=== PATIENT | male | born 1940 | race Caucasian/White ===

== ENCOUNTER 2017-03-22 06:34 | Inpatient (IN) | payer OTHER, MEDICAID ==
[~2017-03-22] VITALS: Ht 165.1 cm; Wt 48.6 kg
[2017-03-22] MEDS ORDERED: SOD CHLORIDE 0.9% 1,000 ML IV STA ×2 (06:37)
[2017-03-22] MEDS ORDERED: CEFEPIME 2GM/50 ML (PMX) 50 ML IVPB STA (06:37)
[2017-03-22] MEDS ORDERED: VANCOMYCIN 1 GM (PMX) 250 ML IVPB ONE (07:00)
[2017-03-22 07:09] LABS: ABNORMAL IP MESSAGE 1; BASOPHIL # 0.1 10^3/ul (0.0-0.1); BASOPHILS % 0.4 % (0.0-2.0); EOSINOPHILS % 0.1 % (0.0-7.0); HEMATOCRIT 32.2 % (42.0-52.0); HEMOGLOBIN 10.2 g/dl (14.0-18.0); LYMPHOCYTES # 0.4 10^3/ul (0.8-2.9); LYMPHOCYTES % 3.2 % (15.0-51.0); MEAN CORPUSCULAR HGB CONC 31.7 g/dl (32.0-37.0); MEAN CORPUSCULAR VOLUME 94.7 fl (82.0-101.0); MEAN PLATELET VOLUME 9.3 fl (7.4-10.4); MONOCYTE # 0.4 10^3/ul (0.3-0.9); NEUTROPHIL # 12.5 10^3/ul (1.6-7.5); NEUTROPHILS % 92.3 % (39.0-77.0); PLATELET COUNT 204 10^3/UL (140-415); POSITIVE DIFF @See below; RED CELL DISTRIBUTION WIDTH 14.6 % (11.5-14.5); WHITE BLOOD COUNT 13.5 10^3/ul (4.8-10.8)
[2017-03-22 07:15] LABS: ADD UMIC YES; UR ASCORBIC ACID NEGATIVE (NEGATIVE); UR BILIRUBIN (Dip) NEGATIVE (NEGATIVE); UR BLOOD (Dip) NEGATIVE (NEGATIVE); UR CLARITY SLIGHTLY CLOUDY (CLEAR); UR COLOR YELLOW (YELLOW); UR GLUCOSE (Dip) 2+ mg/dL (NEGATIVE); UR KETONES (Dip) NEGATIVE (NEGATIVE); UR LEUKOCYTE ESTERASE (Dip) NEGATIVE Leu/ul (NEGATIVE); UR NITRITE (Dip) NEGATIVE (NEGATIVE); UR RBC 5 /HPF (0-5); UR TOTAL PROTEIN (Dip) 1+ mg/dl (NEGATIVE); UR UROBILINOGEN (Dip) NEGATIVE (NEGATIVE)
[2017-03-22 07:25] LABS: PROTIME 13.2 Sec (12.2-14.2)
[2017-03-22 07:26] LABS: PARTIAL THROMBOPLASTIN TIME 41.5 Sec (25.0-35.0)
[2017-03-22 07:32] LABS: ALBUMIN 3.1 g/dl (3.3-4.9); ALBUMIN/GLOBULIN RATIO 0.79; BILIRUBIN,INDIRECT 0.2 mg/dl (0-1.1); BILIRUBIN,TOTAL 0.2 mg/dl (0.2-1.3); CREATININE 0.5 mg/dl (0.61-1.24); POTASSIUM 4.2 mmol/L (3.5-5.1)
[2017-03-22 07:43] LABS: TROPONIN-I 0.029 ng/ml (0.00-0.12)
[2017-03-22] MEDS ORDERED: SODIUM CHLORIDE 0.9% 1L BAG IV* STA (07:51)
[2017-03-22] MEDS ORDERED: ACETAMINOPHEN 325 MG TAB PO PRN (08:00)
[2017-03-22] MEDS ORDERED: ONDANSETRON 4 MG INJ IV PRN ×2 (08:00→14:30)
[2017-03-22] MEDS ORDERED: SOD CHLORIDE 0.9% IV ONE (08:00)
--- NOTE | 2017-03-22 08:40 | RADRPT ---
PROCEDURE: XR Chest. CLINICAL INDICATION: Sepsis TECHNIQUE: An AP view of the chest was obtained. COMPARISON: No prior exam is available for comparison. FINDINGS: There is a right upper extremity PICC line with tip near the cavoatrial junction. There is prominence of the interstitial markings. There are bibasilar interstitial opacities. No pl eural effusion or pneumothorax is seen. The cardiomediastinal silhouette is mildly enlarged . Calc ifications are seen within the aortic arch. The osseous structures demonstrate senescent changes. IMPRESSION: 1. Bibasilar interstitial opacities may reflect atelectasis, interstitial edema, scarring, and / or pneumonia. 2. Chronic-appearing interstitial changes. 3. Mild cardiomegaly and aortic atherosclerosis. 4. Right upper extremity PICC line with tip near the cavoatrial junction. RPTAT: HH .Rosa Maria Altamirano MD, Date Time Electronically viewed and signed by .Rosa Maria Altamirano MD, on 03/22/2017 07:14 .G/
--- NOTE | 2017-03-22 09:07 | ERD ---
ER Documentation Chief Complaint Chief Complaint SOB FROM SNF, FATIGUE HPI Patient is a 76-year-old male with with "no medical problems" who presents with shortness of breath. The patient was brought in by ambulance. He came from a nursing facility. He has low oxygen and shortness of breath. He said that he lost 55 pounds since last year. He denies cancer. He has had a cough. He has no fevers. He is on Zosyn per the long-term information but does not know why. He is a full code. Upon review of old medical records this is the patient 's first visit to the ER. ROS All systems reviewed and are negative except as per history of present illness. Medications Home Meds No Active Prescriptions or Reported Meds Allergies Allergies: Coded Allergies: No Known Allergy (Unverified , 03/22/17) NKA PER CONTRACT CONSULTANT LOYD PMhx/Soc History of Surgery: No (PT DENIES) Anesthesia Reaction: No Hx Neurological Disorder: No Hx Respiratory Disorders: No Hx Cardiac Disorders: No Hx Psychiatric Problems: No Hx Miscellaneous Medical Probl: Yes (METABOLIC DISORDER, DUODENAL OBSTRUCTION, RENAL INSUFFICIENCY, DEHYDRATION) Hx Alcohol Use: No Hx Substance Use: No Hx Tobacco Use: No Smoking Status: Never smoker FmHx Family History: diabetes Physical Exam Vitals Vital Signs Date Time Temp Pulse Resp B/P Pulse Ox O2 Delivery O2 Flow Rate FiO2 03/22/17 08:19 97.5 73 16 136/62 100 Nasal Cannula 3.0 03/22/17 06:39 96.8 89 33 109/54 94 Room Air 03/22/17 06:39 Nasal Cannula 3.0 03/22/17 06:39 Nasal Cannula 3 03/22/17 06:39 96.8 89 33 109/54 94 Physical Exam Const: Moderate distress and severe cachexia Head: Atraumatic Eyes: Normal Conjunctiva ENT: Normal External Ears, Nose and Mouth. Neck: Full range of motion..~ No meningismus. Resp: Tachypnea with rhonchorous breath sounds diffusely Cardio: Regular rate and rhythm, no murmurs Abd: Soft, non tender, non distended. Normal bowel sounds Skin: No petechiae or rashes Back: No midline or flank tenderness Ext: No cyanosis, or edema Neur: Awake confused Result Diagram: 03/22/1764403/22/17644 Results 24 hrs Laboratory Tests Test 03/22/17 06:45 03/22/17 06:48 White Blood Count 13.510^3/ul Red Blood Count 3.4010^6/ul Hemoglobin 10.2g/dl Hematocrit 32.2% Mean Corpuscular Volume 94.7fl Mean Corpuscular Hemoglobin 30.0pg Mean Corpuscular Hemoglobin Concent 31.7g/dl Red Cell Distribution Width 14.6% Platelet Count 86119^3/UL Mean Platelet Volume 9.3fl Neutrophils % 92.3% Lymphocytes % 3.2% Monocytes % 3.0% Eosinophils % 0.1% Basophils % 0.4% Nucleated Red Blood Cells % 0.0/100WBC Neutrophils # 12.510^3/ul Lymphocytes # 0.410^3/ul Monocytes # 0.410^3/ul Eosinophils # 0.010^3/ul Basophils # 0.110^3/ul Nucleated Red Blood Cells # 0.010^3/ul Prothrombin Time 13.2Sec Prothrombin Time Ratio 1.0 INR International Normalized Ratio 1.00 Activated Partial Thromboplast Time 41.5Sec Sodium Level 141mmol/L Potassium Level 4.2mmol/L Chloride Level 98mmol/L Carbon Dioxide Level 35mmol/L Anion Gap 12 Blood Urea Nitrogen 23mg/dl Creatinine 0.50mg/dl Glucose Level 131mg/dl Calcium Level 8.0mg/dl Total Bilirubin 0.2mg/dl Direct Bilirubin 0.00mg/dl Indirect Bilirubin 0.2mg/dl Aspartate Amino Transf (AST/SGOT) 41IU/L Alanine Aminotransferase (ALT/SGPT) 48IU/L Alkaline Phosphatase 218IU/L Troponin I 0.029ng/ml Total Protein 7.0g/dl Albumin 3.1g/dl Globulin 3.90g/dl Albumin/Globulin Ratio 0.79 Urine Color YELLOW Urine Clarity SLIGHTLY CLOUDY Urine pH 5.0 Urine Specific [place] 1.020 Urine Ketones NEGATIVEmg/dL Urine Nitrite NEGATIVEmg/dL Urine Bilirubin NEGATIVEmg/dL Urine Urobilinogen NEGATIVEmg/dL Urine Leukocyte Esterase NEGATIVELeu/ul Urine Microscopic RBC 5/HPF Urine Microscopic WBC 5/HPF Urine Granular Casts FEW/HPF Urine Hemoglobin NEGATIVEmg/dL Urine Glucose 2+mg/dL Urine Total Protein 1+mg/dl Lactic Acid Level 1.2mmol/L Current Medications Medications (Trade) Dose Ordered Sig/Agustin Route PRN Reason Start Time Stop Time Status Last Admin Dose Admin Cefepime HCl 50 ml @ 100 mls/hr ONCE STAT IVPB 03/22/17 06:37 03/22/17 07:06 DC 03/22/17 07:50 Vancomycin HCl 250 ml @ 125 mls/hr ONCE ONCE IVPB 03/22/17 07:00 03/22/17 08:59 DC 03/22/17 07:00 Sodium Chloride 1,000 ml @ 1,000 mls/hr Q1H STAT IV 03/22/17 06:37 03/22/17 07:53 DC 03/22/17 07:35 Sodium Chloride (NS) 1,000 ml @ 1,000 mls/hr Q1H STAT IV 03/22/17 06:37 03/22/17 07:36 DC Ondansetron HCl (Zofran Inj) 4 mg BRIDGE ORDER PRN IV NAUSEA AND/OR VOMITING 03/22/17 08:00 03/23/17 07:59 Acetaminophen (Tylenol Tab) 650 mg ER BRIDGE PRN PO MILD PAIN/FEVER 03/22/17 08:00 03/23/17 07:59 Sodium Chloride 1510 ml 1,510 ml BOLUS OVER 2 HOURS STAT IV* 03/22/17 07:51 03/22/17 07:53 DC Sodium Chloride (NS) 510 ml @ 500 mls/hr Q1H2M ONCE IV 03/22/17 08:00 03/22/17 09:01 DC 03/22/17 08:09 Procedures/MDM EKG read by me: Rate/Rhythm: Regular rate and rhythm at a rate of 89 Intervals: Normal Impression: No evidence of ischemia or arrhythmia X-ray shows pulmonary infiltrates per radiology. Admit MDM: Patient's infectious symptoms have not stabilized and the patient is at risk of rapid decompensation. The patient will be admitted for careful hydration, antibiotic therapy, and infectious source control. Severe Sepsis criteria: Infectious source: Pneumonia End organ damage indicated by: No end organ damage at this time Sepsis Management: Time of recognition of sepsis: Upon arrival Within 3 hours of recognition: Blood cultures x 2 before broad-spectrum antibiotics: Yes 30 ml/kg NS bolus Completed Initial lactate 1.2 Repeat lactate pending Time of recognition of septic shock: No septic shock Septic Shock Assessment: Any lactic acid > 4.0 No Persistent hypotension (SBP < 90 or 40 mmHg drop, MAP < 65) despite 30 mL/kg IV fluid bolus No Volume Re-assessment for Septic Shock (post 30 ml/kg bolus): No septic shock at this time Persistent Hypotension Treatment: Comfort care No Central line Not Required Vasopressor started Not required I considered further perfusion assessment with CVP measurement, SCVO2, bedside ultrasound volume assessment, passive leg raise, trial of further fluid bolus. And proceeded with 30 ml/kg fluid bolus of NSS, broad spectrum antibiotics, and admission. Accepting Care Team Current data and ongoing care discussed. Admitting Physician: Dr. Puente from the panel team Electronic Device Repairer(s): None Outstanding Data: Results and repeat lactic acid Critical Care: Critical care time 35 minutes excluding all billable procedures Emergent fluid management while maintaining close respiratory support. Provision of immediate and broad-spectrum antibiotic therapy. Simultaneous assessment for possible sources in order to direct targeted therapy. Consideration for invasive and chemical support to prevent cardiopulmonary collapse. Departure Diagnosis: Primary Impression: Shortness of breath Additional Impressions: Pneumonia Pneumonia type: due to unspecified organism Laterality: unspecified laterality Lung location: unspecified part of lung Qualified Code: J18.9 - Pneumonia due to infectious organism, unspecified laterality, unspecified part of lung Sepsis Sepsis type: sepsis due to unspecified organism Qualified Code: A41.9 - Sepsis, due to unspecified organism JOSÉ MIGUEL CHRISTENSEN MD Mar 22, 2017 09:07
[2017-03-22] MEDS ORDERED: HEP30MU30 IJ (11:20)
[2017-03-22] MEDS ORDERED: INSU100V3 IJ (11:21)
[2017-03-22] MEDS ORDERED: LEVA0.6312 HHN (11:22)
[2017-03-22 12:39] VITALS: PULSE 85; TEMP 98.2
[2017-03-22 14:25] VITALS: BP 102/66; RESP 18
[2017-03-22] MEDS ORDERED: ACETAMINOPHEN 650 MG SUPP PR PRN (14:30)
[2017-03-22] MEDS ORDERED: NACL 0.9% 3 ML SYG IV SCH (14:30)
[2017-03-22] MEDS ORDERED: VANCOMYCIN IV PER PHARMACY XX SCH (14:30)
--- NOTE | 2017-03-22 14:41 | HP ---
Date/Time of Note Date/Time of Note DATE: 03/22/17 TIME: 14:15 Assessment/Plan VTE Prophylaxis VTE Prophylaxis Intervention: SCD's Lines/Catheters Urinary Cath still in place: No Assessment/Plan Chief Complaint/Hosp Course 76 [facility] with hx of duodenal obstruction, who is on TPN brought to ER for SOB. 1. SIRS with Possible pneumonia. Chest Xray with Bibasilar interstitial opacities may reflect atelectasis, interstitial edema, scarring, and / or pneumonia. Chronic-appearing interstitial changes. -Admit as inpatient , Start bronchodilators, empiric IV abx . -CT chest for follow-up ., f/U Xray, blood, urine and resp CS. 2.Dehydration. -Start IVFs 3.Dysphagia with possible hx of duodenal obstruction -Patient was receiving TPN at [facility] -CT abd/Pelvis,GI consult, speech eval and determine whether patient can be benefited from Jejunostomy placement (endoscopic Vs surgical). 4.Severe protein-Calorie malnutrition -Treatment per #3.Obtain prealbumin, ST/dietary consult. -Obtain HIV antibodies, tumor markers. 5.Metabolic disorders. -monitor lytes 6. Debility -PT/OT/ST eval and treat -Supportive care 7. Anemia, mild,likley chronic. -obtain iron panel. 8. Chronic pancreatitis. -Lipase at baseline. Prophylaxis: SCds/Pepcid. torpedo worker to further nail into available family/community support system available for this gentleman . Rest of the management per hospital course Approximately 60mins spent on this H&P Patient was seen in collaboration with . Problems: HPI/ROS Admit Date/Time Admit Date/Time Hx of Present Illness This is a very unfortunate 76-year-old severely cachectic and debilitated male who is also a poor historian, who was brought from [facility] with shortness of breath and non productive cough. Patient does not seem like he has any insight into his medical problems. However, he reported to me than he lost 55 pounds since last year.Patient denied fevers, chills, PND, night sweats,orthopnea, chest pain, palpitation, headache, loss of consciousness or other difficulties. Up on review of charts, it seems like patient was recently discharged from [facility] where he was treated for metabolic disorders, duodenal obstruction, dehydration. pancreatitis, and protein-calorie malnutrition. He was on TPN therapy at SNF for which he also has a PICC line on his right arm. He is also [facility] Zosyn [facility] charts. Initial labs with negative UA for UTI, Elevated WBC 13,500, HH 10.2/32.2, BUN/ Creat 23/0.5, Alkaline phos 218. Otherwise, unremarkable. Chest Xray showed chronic interstitial changes with Bibasilar interstitial opacities may reflect atelectasis, interstitial edema, scarring, and / or pneumonia. Patient was treated with IVFs, Cefepime +VANCO in ER and admitted. ROS A 12-Point review of system negative except other than what is mentioned in HPI. PMH/Family/Social Past Medical History see HPI Past Surgical History see HPI Social History Denied hx of smoking, alcohol or illicit drug use. Smoking Status: Never smoker Exam/Review of Systems Vital Signs Vitals Vital Signs Date Time Temp Pulse Resp B/P Pulse Ox O2 Delivery O2 Flow Rate FiO2 03/22/17 12:39 98.2 85 22 115/62 100 Nasal Cannula 3.0 Exam Exam General: Severely cachectic male ,not in acute distress. . HEENT: Normocephalic, Atraumatic, No laceration or hematoma; Eyes: PEERL, Conjunctiva clear, Anicteric sclera Neck: Supple without any lymphadenopathy, nontender, no JVD, no carotid bruits, trachea midline, no thyromegaly Cardiac: S1, S2 auscultated, regular rhythm and rate, no mumurs or gallop Pulmonary: Diffuse Rhonchi all lung hobson. Normal respiratory effort.No wheezing. GI: Scaphoid abdomen. Soft, non- distended, no masses, no rebound tenderness or guarding. Bowel sounds active on all four quadrants Genitourinary: Deferred Extremities: With muscle wasting. Generalized weakness. Pulses [2+] bilaterally. Neurologic: Awake/Confused. Incomprehensible speech. Skin: +Poor turgor. Clean,dry, and intact. No ecchymosis, no rashes, or lesions Labs Result Diagram: 03/22/17 0645 03/22/17 0645 NICOLETTE MUHAMMAD NP Mar 22, 2017 14:26
[2017-03-22] MEDS ORDERED: ALBUTEROL/IPRATROPIUM (NEB) 3 ML AMP HHN PRN (15:00)
[2017-03-22 15:24] LABS: TOTAL IRON BINDING CAPACITY 157 ug/dl (241-421)
[2017-03-22 15:41] LABS: IRON 23 ug/dl (35-150)
[2017-03-22] MEDS: ALBUTEROL/IPRATROPIUM (NEB) 3 ML AMP HHN SCH ×2 (16:35→19:59)
--- NOTE | 2017-03-22 17:15 | CONS ---
Date/Time of Note Date/Time of Note DATE: 03/22/17 TIME: 16:51 Assessment/Plan Assessment/Plan Chief Complaint/Hosp Course Assessment: Anemia/ likely secondary to chronic disease Cachectic Dysphagia Possible duodenal obstruction Possible pneumonia. Malnutrition Chronic pancreatitis. Plan: Currently patient refusing to discuss possible PEG placement, this time does not want PEG CT abd/pelvis with IV contrast- to r/o duodenal obstruction- If positive for obstruction and patient agree, will need surgical placement fo J -tube Chief Complaint/Reason for Visit: Dysphagia History of Present Illness: This is a 76 year old male, admitted to the hospital from SNF for SOB, pt with multiple comorbidities, history obtained from medical records, as patient is very agitated and does not want "to answer any more questions". Patient received TPN at SNF, however with malnutrition and dysphagia GI has been asked to consult for possible peg placement. There is some concern for duodenal obstruction. CT abd/pelvis with IV contrast has been ordered to r/o obstruction , however, patient has been refusing most services today, including possibility of PEG placement if CT was negative, We will continue to monitor patient, but hold off on any plans at this time. Past Medical History: Chronic pancreatitis. anemia Allergies: No known allergy Family History: Unable to assess Social History: No smoking-medical records Problems: Consultation Date/Type/Reason Admit Date/Time Date of Consultation: Mar 22, 2017 Type of Consultation: GI Reason for Consultation Dysphagia Possible duodenal obstruction Subjective hx not possible: other (She is agitated, using gas questions, wants to be left alone) Social History Smoking Status: Never smoker Exam/Review of Systems Vital Signs Vitals Vital Signs Date Time Temp Pulse Resp B/P Pulse Ox O2 Delivery O2 Flow Rate FiO2 03/22/17 14:25 97.8 73 18 102/66 99 03/22/17 12:39 Nasal Cannula 3.0 Exam Constitutional: frail, other (Cachectic) Psych: other (Agitated) Head: atraumatic, normocephalic ENMT: other (Dry mucous membranes) Respiratory: other (Unable to assess) Cardiovascular: other (Unable to assess) Gastrointestinal: other (Able to assess) Genitourinary - Male: other (Unable to assess) Musculoskeletal: other (Appears extremely weak) Results Result Diagram: 03/22/17 0645 03/22/17 0645 Results 24 hrs Laboratory Tests Test 03/22/17 06:45 03/22/17 06:48 03/22/17 10:13 03/22/17 12:30 White Blood Count 13.5 H Red Blood Count 3.40 L Hemoglobin 10.2 L Hematocrit 32.2 L Mean Corpuscular Volume 94.7 Mean Corpuscular Hemoglobin 30.0 Mean Corpuscular Hemoglobin Concent 31.7 L Red Cell Distribution Width 14.6 H Platelet Count 204 Mean Platelet Volume 9.3 Neutrophils % 92.3 H Lymphocytes % 3.2 L Monocytes % 3.0 Eosinophils % 0.1 Basophils % 0.4 Nucleated Red Blood Cells % 0.0 Neutrophils # 12.5 H Lymphocytes # 0.4 L Monocytes # 0.4 Eosinophils # 0.0 Basophils # 0.1 Nucleated Red Blood Cells # 0.0 Prothrombin Time 13.2 Prothrombin Time Ratio 1.0 INR International Normalized Ratio 1.00 Activated Partial Thromboplast Time 41.5 H Sodium Level 141 Potassium Level 4.2 Chloride Level 98 Carbon Dioxide Level 35 H Anion Gap 12 Blood Urea Nitrogen 23 H Creatinine 0.50 L Glucose Level 131 Calcium Level 8.0 L Total Bilirubin 0.2 Direct Bilirubin 0.00 Indirect Bilirubin 0.2 Aspartate Amino Transf (AST/SGOT) 41 Alanine Aminotransferase (ALT/SGPT) 48 Alkaline Phosphatase 218 H Troponin I 0.029 Total Protein 7.0 Albumin 3.1 L Globulin 3.90 H Albumin/Globulin Ratio 0.79 Lipase 309 H Urine Color YELLOW Urine Clarity SLIGHTLY CLOUDY A Urine pH 5.0 Urine Specific [place] 1.020 Urine Ketones NEGATIVE Urine Nitrite NEGATIVE Urine Bilirubin NEGATIVE Urine Urobilinogen NEGATIVE Urine Leukocyte Esterase NEGATIVE Urine Microscopic RBC 5 Urine Microscopic WBC 5 Urine Granular Casts FEW A Urine Hemoglobin NEGATIVE Urine Glucose 2+ H Urine Total Protein 1+ H Lactic Acid Level 1.2 1.0 0.8 Iron Level 23 L Total Iron Binding Capacity 157 L Percent Iron Saturation 15 L Medications Medications Current Medications Sodium Chloride (NS) 1,000 ml @ 125 mls/hr Q8H IV ; Start 03/22/17 at 18:00 Ondansetron HCl (Zofran Inj) 4 mg Q6H PRN IV NAUSEA AND/OR VOMITING; Start at 14:30 Acetaminophen (Tylenol Supp) 650 mg Q6H PRN [place] PAIN LEVEL 1-3 OR FEVER; Start 03/22/17 at 14:30 Famotidine 20 mg 20 mg QHS IV ; Start 03/22/17 at 21:00 Cefepime HCl 50 ml @ 100 mls/hr Q24H IVPB ; Start 03/23/17 at 08:00 Vancomycin HCl/ Dextrose/Water (Vancocin/D5W) 150 ml @ 75 mls/hr Q24H IVPB ; Start 03/23/17 at 06:00 NAYAN LOWERY Mar 22, 2017 17:04
[2017-03-22] MEDS: SOD CHLORIDE 0.9% 1,000 ML IV SCH (18:03)
[2017-03-22 18:57] LABS: CARCINOEMBRYONIC ANTIGEN 2.2 ng/ml (0.0-5.0)
[2017-03-22 19:42] VITALS: BP 114/61; RESP 20
[2017-03-22 20:00] VITALS: Ht 165.1 cm; Wt 48.6 kg
[2017-03-22] MEDS ORDERED: FAMOTIDINE 20 MG INJ IV SCH (21:00)
[2017-03-22] MEDS ORDERED: CEFEPIME 1GM/50 ML (PMX) 50 ML IVPB SCH (21:00)
[2017-03-23] MEDS: ALBUTEROL/IPRATROPIUM (NEB) 3 ML AMP HHN SCH ×5 (00:57→16:23)
[2017-03-23 02:09] VITALS: BP 127/60; RESP 20
[2017-03-23] MEDS: SOD CHLORIDE 0.9% 1,000 ML IV SCH ×3 (03:16→15:25)
[2017-03-23] MEDS ORDERED: VANCOMYCIN 750 MG in DEXTROSE 5% 150 ML IVPB SCH (06:00)
[2017-03-23 06:27] LABS: ABNORMAL IP MESSAGE 1; BASOPHILS % 0.2 % (0.0-2.0); EOSINOPHILS % 0.4 % (0.0-7.0); HEMATOCRIT 28.2 % (42.0-52.0); HEMOGLOBIN 8.8 g/dl (14.0-18.0); LYMPHOCYTES # 0.5 10^3/ul (0.8-2.9); LYMPHOCYTES % 4.7 % (15.0-51.0); MEAN CORPUSCULAR HEMOGLOBIN 29.7 pg (29.0-33.0); MEAN CORPUSCULAR HGB CONC 31.2 g/dl (32.0-37.0); MEAN CORPUSCULAR VOLUME 95.3 fl (82.0-101.0); MEAN PLATELET VOLUME 9.8 fl (7.4-10.4); MONOCYTE # 0.6 10^3/ul (0.3-0.9); MONOCYTES % 5.1 % (0.0-11.0); NEUTROPHIL # 9.7 10^3/ul (1.6-7.5); NEUTROPHILS % 88.8 % (39.0-77.0); PLATELET COUNT 202 10^3/UL (140-415); POSITIVE DIFF @See below; RED BLOOD COUNT 2.96 10^6/ul (4.70-6.10); RED CELL DISTRIBUTION WIDTH 14.6 % (11.5-14.5); WHITE BLOOD COUNT 10.9 10^3/ul (4.8-10.8)
[2017-03-23 06:38] LABS: ALBUMIN 2.5 g/dl (3.3-4.9); ALBUMIN/GLOBULIN RATIO 0.69; BILIRUBIN,INDIRECT 0.2 mg/dl (0-1.1); BILIRUBIN,TOTAL 0.2 mg/dl (0.2-1.3); CALCIUM 8.1 mg/dl (8.4-10.2); CHOL/HDL RATIO 5.7 RATIO; CREATININE 0.52 mg/dl (0.61-1.24); MAGNESIUM 1.7 mg/dl (1.7-2.5); PHOSPHORUS 2.8 mg/dl (2.5-4.9); POTASSIUM 3.7 mmol/L (3.5-5.1); TOTAL PROTEIN 6.1 g/dl (6.1-8.1)
[2017-03-23] MEDS ORDERED: PENDING SANTYL ORDER FOR WOUND CARE XX PRN (07:00)
[2017-03-23 07:02] LABS: THYROID STIMULATING HORMONE 1.75 MIU/L (0.465-4.680)
[2017-03-23 08:00] VITALS: BP 117/64; RESP 66
[2017-03-23] MEDS ORDERED: CEFEPIME 1GM/50 ML (PMX) 50 ML IVPB SCH (08:00)
--- NOTE | 2017-03-23 12:18 | PDOCDIS ---
Discharge Instructions CONDITION Patient Condition: Stable HOME CARE INSTRUCTIONS: Special Diet: NPO FOLLOW UP/APPOINTMENTS Follow-up Plan 1.Follow up with primary care physician in 1 week If you don't have one please let someone know, we can give you resources that may help you pick one. You may also call your insurance company to assign one to you. Review your medication list with your nurse before leaving and if you need new prescriptions please let your nurse know. I may have made changes to your home medications or given you new prescriptions, please let your primary doctor know as well. Stay compliant with your medications and report any side effects to your PCP or pharmacist. Return to the ER if you have any concerns and cannot reach your doctors or call your insurance company, they usually have a nurse that can help you. 2. Call 911 or go to the nearest emergency room if experiencing loss of consciousness, dizziness, chest pain, shortness of breath, vomiting/abdominal pain, speech difficulties, motor weakness or any unusual symptoms. NICOLETTE MUHAMMAD NP Mar 23, 2017 12:18
[2017-03-23] MEDS ORDERED: [UNRECOGNIZED DRUG - OTHER] IV (12:19)
[2017-03-23] MEDS ORDERED: DEXTROSE 50% 50 ML SYRINGE IV ONE (12:30)
[2017-03-23] MEDS ORDERED: *CONTINUE SAME TPN IV ONE (12:30)
[2017-03-23] MEDS ORDERED: DEXTROSE 10% 1,000 ML IV SCH (12:30)
--- NOTE | 2017-03-23 13:07 | PN ---
Date/Time of Note Date/Time of Note DATE: 03/23/17 TIME: 13:05 Assessment/Plan VTE Prophylaxis VTE Prophylaxis Intervention: SCD's Lines/Catheters IV [facility] (from [facility] P[facility] Line Central line still needed: Yes (TPN) Urinary Cath still in place: Yes Reason Cath still needed: other (indicate) (Monitor output) Assessment/Plan Chief Complaint/Hosp Course Assessment: Anemia/ likely secondary to chronic disease Cachectic Dysphagia Possible duodenal obstruction Possible pneumonia. Malnutrition Chronic pancreatitis. Plan: Pt refusing all treatment- plan to be transferred back to [facility] today Subjective: Course reviewed with nursing staff Patient interviewed and examined All labs, imaging and other results reviewed The patient in better spirits today, does not want treatment, plan to be transferred back to intermediate teacher care facility today. Problems: Exam/Review of Systems Vital Signs Vitals Vital Signs Date Time Temp Pulse Resp B/P Pulse Ox O2 Delivery O2 Flow Rate FiO2 03/23/17 12:52 87 20 95 Nasal Cannula 3.0 03/23/17 08:00 98.0 117/64 Intake and Output 03/22/17 03/22/17 03/23/17 15:00 23:00 07:00 Intake Total 560 ml 1250 ml Output Total 300 ml Balance 560 ml 950 ml Results Result Diagram: 03/23/17 0510 03/23/17 0509 Results 24 hrs Laboratory Tests Test 03/22/17 14:37 03/23/17 05:09 03/23/17 05:10 Lactate Dehydrogenase 623 H Carcinoembryonic Antigen 2.2 CA 19-9 Antigen 23.0 Sodium Level 142 Potassium Level 3.7 Chloride Level 107 Carbon Dioxide Level 32 H Anion Gap 7 L Blood Urea Nitrogen 24 H Creatinine 0.52 L Glucose Level 55 #L Calcium Level 8.1 L Phosphorus Level 2.8 Magnesium Level 1.7 Total Bilirubin 0.2 Direct Bilirubin 0.00 Indirect Bilirubin 0.2 Aspartate Amino Transf (AST/SGOT) 35 Alanine Aminotransferase (ALT/SGPT) 44 Alkaline Phosphatase 173 H Total Protein 6.1 Albumin 2.5 L Globulin 3.60 H Albumin/Globulin Ratio 0.69 Prealbumin 6.5 L Triglycerides Level 120 Cholesterol Level 115 LDL Cholesterol, Calculated 71 HDL Cholesterol 20 L Cholesterol/HDL Ratio 5.7 Thyroid Stimulating Hormone (TSH) 1.750 White Blood Count 10.9 H Red Blood Count 2.96 L Hemoglobin 8.8 L Hematocrit 28.2 L Mean Corpuscular Volume 95.3 Mean Corpuscular Hemoglobin 29.7 Mean Corpuscular Hemoglobin Concent 31.2 L Red Cell Distribution Width 14.6 H Platelet Count 202 Mean Platelet Volume 9.8 Neutrophils % 88.8 H Lymphocytes % 4.7 L Monocytes % 5.1 Eosinophils % 0.4 Basophils % 0.2 Nucleated Red Blood Cells % 0.0 Neutrophils # 9.7 H Lymphocytes # 0.5 L Monocytes # 0.6 Eosinophils # 0.0 Basophils # 0.0 Nucleated Red Blood Cells # 0.0 Hemoglobin A1c 4.9 Medications Medications Current Medications Sodium Chloride (NS) 1,000 ml @ 125 mls/hr Q8H IV Last administered on 03:16; Admin Dose 125 MLS/HR; Start 03/22/17 at 18:00 Ondansetron HCl (Zofran Inj) 4 mg Q6H PRN IV NAUSEA AND/OR VOMITING; Start at 14:30 Acetaminophen (Tylenol Supp) 650 mg Q6H PRN [place] PAIN LEVEL 1-3 OR FEVER; Start 03/22/17 at 14:30 Famotidine 20 mg 20 mg QHS IV Last administered on 03/22/17 20:29; Admin Dose 20 MG; Start 03/22/17 at 21:00 Cefepime HCl 50 ml @ 100 mls/hr Q24H IVPB Last administered on 03/23/17 08: 21; Admin Dose 100 MLS/HR; Start 03/23/17 at 08:00 Vancomycin HCl/ Dextrose/Water (Vancocin/D5W) 150 ml @ 75 mls/hr Q24H IVPB Last administered on 03/23/17 05:58; Admin Dose 75 MLS/HR; Start 03/23/17 at 06:00 Miscellaneous Information (Pending Santyl Order For Wound Care) This patient will... PRN PRN XX WOUND CARE; Start 03/23/17 at 07:00 Miscellaneous Information CONTINUE SAME TPN TO... ONCE ONCE IV ; Start at 12:30; Stop 03/23/17 at 12:31; Status UNV Dextrose (D10w) 1,000 ml @ 80 mls/hr [id number] IV Last administered on 10/27/ 17at 12:34; Admin Dose 80 MLS/HR; Start 03/23/17 at 12:30 NAYAN LOWERY Mar 23, 2017 13:07
[2017-03-23] MEDS ORDERED: LEVAQUIN 500 MG (13:54)
--- NOTE | 2017-03-23 13:56 | DS ---
Date/Time of Note Date/Time of Note DATE: 03/23/17 TIME: 13:51 Discharge Summary Admission/Discharge Info Admit Date/Time Mar 22, 2017 at 07:37 Discharge Date/Time Discharge Diagnosis 1. SIRS with Possible pneumonia. 2.Dehydration. 3.Dysphagia with possible hx of duodenal obstruction, on TPN. Patient refused G -tube placement 4.Severe protein-Calorie malnutrition 5.Metabolic disorders. 6. Debility 7. Anemia, mild,likley chronic. 8. Chronic pancreatitis. Consults ,GI Hx of Present Illness This is a very unfortunate 76-year-old severely cachectic and debilitated male who is also a poor historian, who was brought from [facility] with shortness of breath and non productive cough. Patient does not seem like he has any insight into his medical problems. However, he reported to me than he lost 55 pounds since last year.Patient denied fevers, chills, PND, night sweats,orthopnea, chest pain, palpitation, headache, loss of consciousness or other difficulties. Up on review of charts, it seems like patient was recently discharged from [facility] where he was treated for metabolic disorders, duodenal obstruction, dehydration. pancreatitis, and protein-calorie malnutrition. He was on TPN therapy at SNF for which he also has a PICC line on his right arm. He is also on Zosyn per the correction charts. Initial labs with negative UA for UTI, Elevated WBC 13,500, HH 10.2/32.2, BUN/ Creat 23/0.5, Alkaline phos 218. Otherwise, unremarkable. Chest Xray showed chronic interstitial changes with Bibasilar interstitial opacities may reflect atelectasis, interstitial edema, scarring, and / or pneumonia. Patient was treated with IVFs, Cefepime +VANCO in ER and admitted. Hospital Course Patient was then admitted to inpatient medical surgical floor. Patient had GI evaluation. Plan was to repeat a CAT scan of the abdomen and pelvis to get a baseline status of possible history of duodenal obstruction and to determine whether patient would benefit from endoscopic versus PEG versus G-tube placement. However, patient was very adamant on not having any further workup including diagnostic testis, PEG placement or any other. He kept saying that he never wanted to leave with G-tube and enteral feeding. He wants to continue with his TPN in the correction. Patient also refused echocardiogram and further labs and imaging studies. At this time, we have pain management doctor evaluated the patient. After having discussion with the patient, a decision was made to change his CODE STATUS to DNR as this is what patient opted for. He was also receptive to hospice upon discharge. Therefore this was deferred for outpatient follow-up. At this time, there is no further inpatient workup indicated. Patient is feeling back to his baseline. His vital signs remained stable. SIRS resolving. At this time, it is possible that patient may have early stage pneumonia and is resolving at this time. He is recommended to continue Levaquin for 5 more days upon discharge. Again, patient refused any further treatment and wanted to go back to his custodial facility for comfort focused care, though he could have benefited from further GI follow-up and a possible enteral tube placement. Disposition: Discharged to custodial facility with DNR status and outpatient hospice follow-up. Approximately 60 minutes was spent in coordinating the discharge on this patient. Patient was seen in collaboration with . Home Meds Active Scripts [* Continue Same Tpn] 1 EA EACH No Conflict Check, 0 EA IV ONCE Prov:NICOLETTE MUHAMMAD V. FERRY CAPTAIN 03/23/17 Reported Medications Levalbuterol* (Xopenex*) 0.63 Mg/3 Ml Nebu, 0.63 MG HHN Q8, EA 03/22/17 Insulin Regular, Human (Humulin R) 100 Unit/1 Ml Vial, 0-12 UNIT IJ AC MEALS, VIAL 03/22/17 Heparin Sod (Porcine) (Heparin) 1,000 Unit/Ml Soln, 5000 UNIT IJ Q12 03/22/17 Follow-up Plan 1.Follow up with primary care physician in 1 week If you don't have one please let someone know, we can give you resources that may help you pick one. You may also call your insurance company to assign one to you. Review your medication list with your nurse before leaving and if you need new prescriptions please let your nurse know. I may have made changes to your home medications or given you new prescriptions, please let your primary doctor know as well. Stay compliant with your medications and report any side effects to your PCP or pharmacist. Return to the ER if you have any concerns and cannot reach your doctors or call your insurance company, they usually have a nurse that can help you. 2. Call 911 or go to the nearest emergency room if experiencing loss of consciousness, dizziness, chest pain, shortness of breath, vomiting/abdominal pain, speech difficulties, motor weakness or any unusual symptoms. Primary Care Provider Not On Staff Doctor Pending Labs Laboratory Tests Test 03/22/17 14:37 03/23/17 05:09 03/23/17 05:10 Lactate Dehydrogenase 623IU/L (313-618) Carcinoembryonic Antigen 2.2ng/ml (0.0-5.0) CA 19-9 Antigen 23.0U/ml (0.0-37.0) Sodium Level 142mmol/L (135-144) Potassium Level 3.7mmol/L (3.5-5.1) Chloride Level 107mmol/L (97-110) Carbon Dioxide Level 32mmol/L (21-31) Anion Gap 7 (8-16) Blood Urea Nitrogen 24mg/dl (7-20) Creatinine 0.52mg/dl (0.61-1.24) Glucose Level 55mg/dl (70-220) Calcium Level 8.1mg/dl (8.4-10.2) Phosphorus Level 2.8mg/dl (2.5-4.9) Magnesium Level 1.7mg/dl (1.7-2.5) Total Bilirubin 0.2mg/dl (0.2-1.3) Direct Bilirubin 0.00mg/dl (0.00-0.20) Indirect Bilirubin 0.2mg/dl (0-1.1) Aspartate Amino Transf (AST/SGOT) 35IU/L (15-46) Alanine Aminotransferase (ALT/SGPT) 44IU/L (13-69) Alkaline Phosphatase 173IU/L (42-121) Total Protein 6.1g/dl (6.1-8.1) Albumin 2.5g/dl (3.3-4.9) Globulin 3.60g/dl (1.3-3.2) Albumin/Globulin Ratio 0.69 Prealbumin 6.5mg/dl (17.6-36.0) Triglycerides Level 120mg/dl (0-149) Cholesterol Level 115mg/dl (100-200) LDL Cholesterol, Calculated 71mg/dl HDL Cholesterol 20mg/dl (31-75) Cholesterol/HDL Ratio 5.7RATIO Thyroid Stimulating Hormone (TSH) 1.750MIU/L (0.465-4.680) White Blood Count 10.910^3/ul (4.8-10.8) Red Blood Count 2.9610^6/ul (4.70-6.10) Hemoglobin 8.8g/dl (14.0-18.0) Hematocrit 28.2% (42.0-52.0) Mean Corpuscular Volume 95.3fl (82.0-101.0) Mean Corpuscular Hemoglobin 29.7pg (29.0-33.0) Mean Corpuscular Hemoglobin Concent 31.2g/dl (32.0-37.0) Red Cell Distribution Width 14.6% (11.5-14.5) Platelet Count 36766^3/UL (140-415) Mean Platelet Volume 9.8fl (7.4-10.4) Neutrophils % 88.8% (39.0-77.0) Lymphocytes % 4.7% (15.0-51.0) Monocytes % 5.1% (0.0-11.0) Eosinophils % 0.4% (0.0-7.0) Basophils % 0.2% (0.0-2.0) Nucleated Red Blood Cells % 0.0/100WBC (0.0-0.0) Neutrophils # 9.710^3/ul (1.6-7.5) Lymphocytes # 0.510^3/ul (0.8-2.9) Monocytes # 0.610^3/ul (0.3-0.9) Eosinophils # 0.010^3/ul (0.0-0.5) Basophils # 0.010^3/ul (0.0-0.1) Nucleated Red Blood Cells # 0.010^3/ul (0.0-0.0) Hemoglobin A1c 4.9% (0-5.9) NICOLETTE MUHAMMAD NP Mar 23, 2017 13:56
[2017-03-23 14:00] VITALS: BP 104/58; RESP 18
== END 2017-03-23 20:45 | DRG 193 ==
LOC: E/R 06:34 → PP2 07:37
PROVIDERS: ADMIT Hospitalist; ATTEND Hospitalist
DX: J18.9 Pneumonia, unspecified organism (principal); E43 Unspecified severe protein-calorie malnutrition; R65.10 Systemic inflammatory response syndrome (SIRS) of non-infectious origin without acute organ dysfunction; K31.5 Obstruction of duodenum; E86.0 Dehydration; R13.10 Dysphagia, unspecified; D64.9 Anemia, unspecified; K86.1 Other chronic pancreatitis; Z68.1 Body mass index [BMI] 19.9 or less, adult; E88.9 Metabolic disorder, unspecified; R53.81 Other malaise
CPT/HCPCS: 36415; 71010; 80053; 80061; 81001; 82105; 82378; 82962; 83036; 83540; 83605; 83615; 83690; 83735; 84100; 84134; 84443; 84484; 85025; 85610; 85730; 86301; 86703; 87040; 87086; 92610; 93005; 94640; 94664; 96361; 96365; 96375; J0692; J3370; J7030; J7040